=== PATIENT | male | born 2000 | race African-American/Black ===

== ENCOUNTER 2025-02-25 16:02 | Emergency (ER) | payer OTHER ==
[~2025-02-25] VITALS: Ht 182.9 cm; Wt 104.5 kg
[2025-02-25 16:05] VITALS: BP 133/72; PULSE 82; RESP 18; TEMP 98.4; O2SAT 99
[2025-02-25] MEDS: ACETAMINOPHEN 500 MG TABLET PO ONE (17:12)
[2025-02-25] MEDS: KETOROLAC TROMETHAMINE 30 MG/ML VIAL IVP ONE (17:12)
[2025-02-25] MEDS: OMEPRAZOLE 20 MG CAPSULE PO ONE (17:12)
[2025-02-25 17:13] LABS: BASOPHILS % (AUTO) 0.2 % (0.0-2.0); EOSINOPHILS % (AUTO) 0 % (1.0-6.0); HEMATOCRIT 45.6 % (41-53); HEMOGLOBIN 15.1 g/dL (13.5-17.5); LYMPHOCYTES # (AUTO) 0.7 K/uL (1.0-4.8); LYMPHOCYTES % (AUTO) 10.1 % (22.0-44.0); MEAN CORPUSCULAR HEMOGLOBIN 28.4 pg (26.0-34.0); MEAN CORPUSCULAR HGB CONC 33.1 G/dL (31.0-37.0); MEAN CORPUSCULAR VOLUME 86 fL (80-100); MONOCYTES # (AUTO) 0.5 K/uL (0.1-1.0); MONOCYTES % (AUTO) 6.7 % (2.0-9.0); NEUTROPHILS # (AUTO) 5.6 K/uL (1.8-7.7); PLATELET COUNT (AUTO) 218 K/uL (150-450); RED BLOOD CELL COUNT(AUTO) 5.32 MIL/uL (4.50-5.90); RED CELL DISTRIBUTION WIDTH 13.3 % (11.5-14.5); WHITE BLOOD COUNT (AUTO) 6.7 K/uL (4.5-11.0)
[2025-02-25] MEDS: SODIUM CHLORIDE 0.9% 2,000 ML IV ONE (17:13)
[2025-02-25 17:21] LABS: ANION GAP 7 mmol/L (8-16); CALCIUM, TOTAL 9.1 mg/dL (8.8-10.5); CARBON DIOXIDE 28 mmol/L (22-29); CHLORIDE 101 mmol/L (98-107); GLOMERULAR FILTR. RATE CALC > 60 mL/min (>60); GLUCOSE,RANDOM 100 mg/dL (70-110); POTASSIUM 4.3 mmol/L (3.5-5.1); SODIUM SERUM 136 mmol/L (136-145); UREA NITROGEN, BLOOD 8 mg/dL (7-18)
[2025-02-25 17:22] LABS: LIPASE 23 U/L (16-77)
[2025-02-25] MEDS ORDERED: IBUP-1554 PO (18:54)
[2025-02-25] MEDS ORDERED: ONDA-104 PO (18:54)
[2025-02-25] MEDS ORDERED: ACET-66 PO (18:54)
== END 2025-02-25 19:08 | disposition home or self-care (01) ==
LOC: EMS 16:02
DX: E86.0 Dehydration (principal); R11.0 Nausea
CPT/HCPCS: 99283; 96374; 96361; 80048; 83690; 85025; 36415; J1885; J7030

== ENCOUNTER 2025-04-27 17:34 | Emergency (ER) | payer OTHER ==
[~2025-04-27] VITALS: Ht 180.3 cm; Wt 109.1 kg
[~2025-04-27 17:34] MED LIST: ACET-66 PO; IBUP-1554 PO; ONDA-104 PO
[2025-04-27 17:50] VITALS: BP 144/61; PULSE 93; RESP 19; TEMP 98.6; O2SAT 96
[2025-04-27 18:28] LABS: BASOPHILS % (AUTO) 0.4 % (0.0-2.0); EOSINOPHILS % (AUTO) 0.1 % (1.0-6.0); HEMOGLOBIN 15.8 g/dL (13.5-17.5); LYMPHOCYTES % (AUTO) 11.5 % (22.0-44.0); MEAN CORPUSCULAR HEMOGLOBIN 28.6 pg (26.0-34.0); MEAN CORPUSCULAR HGB CONC 33.7 G/dL (31.0-37.0); MEAN CORPUSCULAR VOLUME 85 fL (80-100); MONOCYTES # (AUTO) 0.7 K/uL (0.1-1.0); NEUTROPHILS # (AUTO) 6.9 K/uL (1.8-7.7); PLATELET COUNT (AUTO) 232 K/uL (150-450); RED BLOOD CELL COUNT(AUTO) 5.52 MIL/uL (4.50-5.90); RED CELL DISTRIBUTION WIDTH 13.5 % (11.5-14.5); WHITE BLOOD COUNT (AUTO) 8.7 K/uL (4.5-11.0)
[2025-04-27 18:35] LABS: ANION GAP 11 mmol/L (8-16); CALCIUM, TOTAL 8.6 mg/dL (8.8-10.5); CARBON DIOXIDE 28 mmol/L (22-29); CHLORIDE 99 mmol/L (98-107); CREATININE 0.93 mg/dL (0.60-1.30); GLOMERULAR FILTR. RATE CALC > 60 mL/min (>60); GLUCOSE,RANDOM 92 mg/dL (70-110); POTASSIUM 3.7 mmol/L (3.5-5.1); SODIUM SERUM 138 mmol/L (136-145); UREA NITROGEN, BLOOD 6 mg/dL (7-18)
[2025-04-27 18:44] LABS: TROPONIN I-HIGH SENSITIVITY 9 ng/L (<76)
[2025-04-27] MEDS ORDERED: ACETAMINOPHEN 500 MG TABLET PO ONE (20:00)
[2025-04-27] MEDS ORDERED: DiphenhydrAMINE HCL 25 MG CAPSULE PO ONE (20:00)
== END 2025-04-27 20:53 | disposition home or self-care (01) ==
LOC: EMS 17:35
DX: F10.129 Alcohol abuse with intoxication, unspecified (principal); F14.10 Cocaine abuse, uncomplicated; R07.89 Other chest pain; F17.210 Nicotine dependence, cigarettes, uncomplicated; Z79.899 Other long term (current) drug therapy; Y90.3 Blood alcohol level of 60-79 mg/100 ml
CPT/HCPCS: 99285; 71045; 80048; 84484; 85025; 36415; 93005; G0480